=== PATIENT | male | born 1950 | race Caucasian/White ===

== ENCOUNTER 2017-09-20 20:46 | Emergency (ER) | payer OTHER, MEDICAID ==
[~2017-09-20] VITALS: Ht 172.7 cm; Wt 77.1 kg
[2017-09-20 20:46] VITALS: BP_SYST 131
[2017-09-20] MEDS ORDERED: NACL 0.9% 1,000 ML IV SCH (20:54)
[2017-09-20] MEDS ORDERED: MORP15TA60 PO (21:32)
[2017-09-20] MEDS ORDERED: HYDR-4100 PO (21:33)
[2017-09-20] MEDS ORDERED: ACET650S13 RC (21:35)
[2017-09-20] MEDS ORDERED: DULR10 RC (21:37)
[2017-09-20] MEDS ORDERED: LORA-258 PO (21:40)
[2017-09-20] MEDS ORDERED: MORP10SO SL (21:40)
[2017-09-20] MEDS ORDERED: HYDR-2470 PO (21:42)
[2017-09-20] MEDS ORDERED: GABA-531 PO (21:42)
[2017-09-20] MEDS ORDERED: PARO40TA45 PO (21:43)
[2017-09-20] MEDS ORDERED: METF1000 PO (21:43)
[2017-09-20] MEDS ORDERED: CAT.1 PO (21:44)
[2017-09-20] MEDS ORDERED: MELA3TAB37 PO (21:44)
[2017-09-20] MEDS ORDERED: ACET-2165 PO (21:45)
[2017-09-20] MEDS ORDERED: DOCU250C PO (21:46)
[2017-09-20 21:47] LABS: BASOPHILS % (AUTO) 0.2 % (0.0-2.0); EOSINOPHILS % (AUTO) 0.2 % (0.0-4.0); HEMATOCRIT 31.2 % (36-54); HEMOGLOBIN 10.1 g/dL (14.0-18.0); MEAN CORPUSCULAR HEMOGLOBIN 28 pg (27-31); MEAN CORPUSCULAR HGB CONC 32 % (32-36); MEAN CORPUSCULAR VOLUME 86 fL (79.0-98.0); MONOCYTES # (AUTO) 1.2 K/uL (0.0-1.0); MONOCYTES % (AUTO) 10.3 % (1.7-9.3); NEUTROPHILS # (AUTO) 9.8 K/uL (1.8-7.7); NEUTROPHILS % (AUTO) 81.3 % (40.0-70.0); PLATELET COUNT (AUTO) 442 K/uL (130-430); RED BLOOD CELL COUNT(AUTO) 3.64 MIL/uL (4.2-6.2); RED CELL DISTRIBUTION WIDTH 18.3 % (9.0-15.0)
[2017-09-20] MEDS ORDERED: NIAC750T15 PO (21:47)
[2017-09-20] MEDS ORDERED: COMR25 RC (21:48)
[2017-09-20 21:51] LABS: CALCIUM 9.5 mg/dL (8.4-11.0); CREATININE 1.78 mg/dL (0.55-1.30); POTASSIUM 5.2 mmol/L (3.5-5.1)
[2017-09-20] MEDS ORDERED: CARV25TA55 PO (21:52)
[2017-09-20] MEDS ORDERED: LISI40TA4 PO (21:52)
[2017-09-20] MEDS ORDERED: [UNRECOGNIZED DRUG - CODE] SL (21:55)
[2017-09-20 22:06] LABS: ALBUMIN 3.4 g/dL (3.4-4.8); TOTAL BILIRUBIN 0.4 mg/dL (0.0-1.0)
[2017-09-20 22:14] LABS: BILIRUBIN,URINE NEGATIVE (NEGATIVE); BLOOD, URINE NEGATIVE (NEGATIVE); CLARITY/URINE CLEAR (CLEAR); COLOR,URINE YELLOW (YELLOW); GLUCOSE,URINE NEGATIVE (NEGATIVE); KETONES,URINE NEGATIVE (NEGATIVE); LEUKOCYTE ESTERASE ,URINE NEGATIVE (NEGATIVE); NITRITE, URINE NEGATIVE (NEGATIVE); PH,URINE 5.5 (5.0-8.0); PROTEIN URINE NEGATIVE (NEGATIVE); UROBILINOGEN,URINE 0.2 (0.2-1.0)
[2017-09-20] MEDS ORDERED: INSULIN REGULAR, HUMAN 10 UNITS/0.1 ML INJ IVP ONE (22:15)
[2017-09-20] MEDS ORDERED: SODIUM POLYSTYRENE SULFONATE 15 GM/60 ML UDBTL PO ONE (22:15)
[2017-09-20] MEDS ORDERED: ACETAMINOPHEN 500 MG TABLET PO ONE (22:15)
[2017-09-20] MEDS ORDERED: DEXTROSE 50% JECT 50 ML DISP.SYRIN IVP ONE (22:15)
[2017-09-20] MEDS ORDERED: PIPERACILLIN/TAZO 3.375 GM in NS 50 ML IV ONE (22:45)
[2017-09-20] MEDS ORDERED: LORazepam 2 MG/ML VIAL (FOR ER USE) IVP ONE (23:45)
[2017-09-20] MEDS ORDERED: NACL 0.9% 1,000 ML IV ONE (23:45)
[2017-09-21] MEDS ORDERED: PIPERACILLIN/TAZOBACTAM 3.375 GM/VIAL (ZOSYN) IV ONE (00:10)
[2017-09-21 01:53] VITALS: BP_SYST 131
== END 2017-09-21 01:53 | disposition home or self-care (01) ==
LOC: SED 20:46
DX: R41.82 Altered mental status, unspecified (principal); E11.621 Type 2 diabetes mellitus with foot ulcer; E87.1 Hypo-osmolality and hyponatremia; E87.5 Hyperkalemia; F03.90 Unspecified dementia, unspecified severity, without behavioral disturbance, psychotic disturbance, mood disturbance, and anxiety; Z86.73 Personal history of transient ischemic attack (TIA), and cerebral infarction without residual deficits; Z79.4 Long term (current) use of insulin; Z79.899 Other long term (current) drug therapy
CPT/HCPCS: 36415; 70450; 71045; 80053; 81003; 82140; 83605; 84484; 85025; 87040; 93005; 96361; 96365; 96375; 99285; J1815; J2060; J2543; J7030 ×2